=== PATIENT | female | born 1990 | race Caucasian/White ===

== ENCOUNTER 2017-05-07 00:13 | Emergency (ER) | payer OTHER ==
[~2017-05-07] VITALS: Ht 162.6 cm; Wt 55.7 kg
[~2017-05-07 00:13] MED LIST: CLEOCIN300 MG PO; Motrin PO; TRAZODONE HCL150 MG PO; VICODIN 5-3001 EACH PO; ZOFRAN ODT4 MG PO
[2017-05-07] MEDS ORDERED: BACTRIM,SEPT1 TABLET PO (01:06)
[2017-05-07] MEDS ORDERED: METHADONE HCL40 MG PO (01:12)
[2017-05-07 02:13] VITALS: BP 125/77
== END 2017-05-07 02:13 | disposition home or self-care (01) ==
LOC: EME 00:13 → EXP 00:13 → EME 02:13
PROC: 0H9CXZZ Drainage of Left Upper Arm Skin, External Approach (ICD-10-PCS; principal; 2017-05-07)
DX: L02.412 Cutaneous abscess of left axilla (principal); F17.200 Nicotine dependence, unspecified, uncomplicated
CPT/HCPCS: 87070; 87075; 87077; 87147; 87186; 87205; 99281; 99284; J2060